=== PATIENT | female | born 1950 | race Caucasian/White ===

== ENCOUNTER 2022-03-01 15:00 | Outpatient (REF) | payer MEDICARE, SELFPAY ==
[2022-03-01 15:47] LABS: Appearance Urine CLEAR; Color Urine YELLOW; Glucose Urine UA NEG (NEG); Leukocyte Esterase Urine NEG (NEG); Nitrite Urine NEG (NEG); PH 5.5 (5.0-8.0); Specific Gravity - Urine 1.025 (1.005-1.025); Urine Blood NEG (NEG); Urine Ketones 5 MG/DL (NEG); Urine Protein NEG (NEG-TRACE)
[2022-03-01 16:08] LABS: Anion Gap 13 (12-20); Blood Urea Nitrogen 20 mg/dL (9-16); Calcium 9.6 mg/dL (8.4-10.2); Carbon Dioxide 26 mmol/L (22-29); Chloride 109 mmol/L (96-108); Estimated Glomerular Filt Rate 35; Glucose Random 100 mg/dL (60-115); Potassium 4.6 mmol/L (3.3-5.1); Sodium 143 mmol/L (135-145)
[2022-03-01 16:14] LABS: Bacteria Urine TRACE /LPF; Mucus Urine 4+ /LPF; RBC Urine 0-2 /HPF (0); Squamous Epithelial Cell Urine 3+ /LPF; WBC Urine 0 /HPF (0-4)
[2022-03-01 16:34] LABS: T4 Thyroxine 7.9 ug/dL (4.5-12.0)
[2022-03-01 16:39] LABS: Thyroid Stimulating Hormone 1.44 uIU/mL (0.32-4.0)
[2022-03-01 16:45] LABS: Folate 10.9 ng/mL (> or = 4.0); Vitamin B12 387 pg/mL (200-900)
== END 2022-03-01 15:01 | disposition home or self-care (01) ==
LOC: HO.LAB 15:00
PROVIDERS: PCP Internal Medicine; Visit Provider Psychiatry & Neurology Neurology
DX: G31.09 Other frontotemporal neurocognitive disorder (principal); G31.84 Mild cognitive impairment of uncertain or unknown etiology
CPT/HCPCS: 36415; 80048; 81001; 82607; 82746; 84436; 84443